=== PATIENT | male | born 1965 | race Caucasian/White ===

== ENCOUNTER 2016-09-27 16:10 | Emergency (ER) | payer MEDICAID ==
[~2016-09-27] VITALS: Ht 188 cm; Wt 118.0 kg
[2016-09-27 16:12] VITALS: BP 120/76; PULSE 68; RESP 20; TEMP 98.1; O2SAT 94
--- NOTE | 2016-09-27 16:53 | PD ---
HPI Chief Complaint: Lump, Cyst, Hernia Time Seen by Provider: 16:53 Travel History International Travel<30 days: No Contact w/Intl Traveler<30days: No Traveled to known affect area: No History of Present Illness HPI 51-year-old male with no significant medical history presents to the emergency department for evaluation of an abscess posterior to the scrotum worsening over last 4 days. Patient was at his primary care provider today who advised to come to the emergency department for possible surgical evaluation. Patient has had no fever or chills. States it is very painful. Rates it a 10 out of 10. No nausea or vomiting. No abdominal pain. Patient is unable to sit on his buttocks due to the pain. Bowel movements elicit pain. No blood in stool. No difficulty urinating. No other symptoms to report. PFSH Past Medical History Cardiac Catheterization: Yes Social History Alcohol Use: No Tobacco Use: No Substance Use: No Allergies-Medications (Allergen,Severity, Reaction): Coded Allergies: No Known Allergies (Unverified , 09/27/16) Reported Meds & Prescriptions Reported Meds & Active Scripts Active No Active Prescriptions or Reported Medications Review of Systems Except as stated in HPI: all other systems reviewed are Neg Physical Exam Narrative GENERAL: Well-nourished male patient, ambulatory very carefully and in no acute distress SKIN: Warm and dry. HEAD: Atraumatic. Normocephalic. EYES: Pupils equal and round. No scleral icterus. No injection or drainage. ENT: No nasal bleeding or discharge. Mucous membranes pink and moist. NECK: Trachea midline. No JVD. CARDIOVASCULAR: Regular rate and rhythm. No murmur appreciated. RESPIRATORY: No accessory muscle use. Clear to auscultation. Breath sounds equal bilaterally. GASTROINTESTINAL: Abdomen soft, non-tender, nondistended. Hepatic and splenic margins not palpable. RECTAL EXAM: Unable to do a complete rectal exam however there is a large area of edema in the parent and posterior to the scrotum and anterior to the anus. It appears fluctuant but is very very tender for the patient to any palpation. MUSCULOSKELETAL: No obvious deformities. No clubbing. No cyanosis. No edema. NEUROLOGICAL: Awake and alert. No obvious cranial nerve deficits. Motor grossly within normal limits. Normal speech. PSYCHIATRIC: Appropriate mood and affect; insight and judgment normal. Data Data Last Documented VS Vital Signs Date Time Temp Pulse Resp B/P Pulse Ox O2 Delivery O2 Flow Rate FiO2 09/27/16 16:12 98.1 68 20 120/76 94 Room Air Orders Complete Blood Count With Diff (09/27/16 17:07) Basic Metabolic Panel (Bmp) (09/27/16 17:07) Coag Profile (09/27/16 17:07) Ondansetron Inj (Zofran Inj) (09/27/16 18:00) Ct Abd/Pel W Iv Contrast(Rout) (09/27/16 ) Iv Access Insert/Monitor (09/27/16 18:05) Morphine Inj (Morphine Inj) (09/27/16 18:30) Iohexol 350 Inj (Omnipaque 350 Inj) (09/27/16 19:14) Labs Laboratory Tests Test 09/27/16 17:30 White Blood Count 10.5 TH/MM3 Red Blood Count 4.97 MIL/MM3 Hemoglobin 15.7 GM/DL Hematocrit 44.7 % Mean Corpuscular Volume 90.1 FL Mean Corpuscular Hemoglobin 31.7 PG Mean Corpuscular Hemoglobin 35.1 % Concent Red Cell Distribution Width 13.6 % Platelet Count 148 TH/MM3 Mean Platelet Volume 9.6 FL Neutrophils (%) (Auto) 68.6 % Lymphocytes (%) (Auto) 17.1 % Monocytes (%) (Auto) 10.5 % Eosinophils (%) (Auto) 3.1 % Basophils (%) (Auto) 0.7 % Neutrophils # (Auto) 7.2 TH/MM3 Lymphocytes # (Auto) 1.8 TH/MM3 Monocytes # (Auto) 1.1 TH/MM3 Eosinophils # (Auto) 0.3 TH/MM3 Basophils # (Auto) 0.1 TH/MM3 CBC Comment DIFF FINAL Differential Comment Prothrombin Time 10.3 SEC Prothromb Time International 0.9 RATIO Ratio Activated Partial 33.0 SEC Thromboplast Time Sodium Level 142 MEQ/L Potassium Level 4.2 MEQ/L Chloride Level 107 MEQ/L Carbon Dioxide Level 28.6 MEQ/L Anion Gap 6 MEQ/L Blood Urea Nitrogen 13 MG/DL Creatinine 0.97 MG/DL Estimat Glomerular Filtration 82 ML/MIN Rate Random Glucose 90 MG/DL Calcium Level 8.4 MG/DL MDM Medical Decision Making Medical Screen Exam Complete: Yes Emergency Medical Condition: Yes Medical Record Reviewed: Yes Differential Diagnosis Perineal abscess versus perirectal abscess versus prostatitis versus erysipelas versus folliculitis versus cellulitis Narrative Course 51-year-old male presents to emergency department for evaluation. Workup was initiated in triage. Once a medical bed becomes available, patient will be transferred and care assumed by that provider. Patient is unable to sit so he will stay in the bed here in triage. IV access has been obtained and CT imaging is ordered. Scripts No Active Prescriptions or Reported Meds Condition: Stable Chela Collins Sep 27, 2016 16:53
[2016-09-27 17:38] LABS: AUTOMATED NEUTROPHIL # 7.2 TH/MM3 (1.8-7.7); BASOPHIL # 0.1 TH/MM3 (0-0.2); BASOPHIL % 0.7 % (0.0-2.0); EOSINOPHIL # 0.3 TH/MM3 (0-0.4); EOSINOPHIL % 3.1 % (0.0-4.0); HEMATOCRIT 44.7 % (39.0-51.0); HEMO FLAGS DIFF FINAL; LYMPH % 17.1 % (9.0-44.0); LYMPHOCYTE # 1.8 TH/MM3 (1.0-4.8); MEAN CELL VOLUME 90.1 FL (80.0-100.0); MEAN CORPUSCULAR HEMOGLOBIN 31.7 PG (27.0-34.0); MEAN CORPUSCULAR HGB CONC 35.1 % (32.0-36.0); MONO % 10.5 % (0.0-8.0); NEUT % 68.6 % (16.0-70.0); PLATELET COUNT 148 TH/MM3 (150-450); RED BLOOD COUNT 4.97 MIL/MM3 (4.50-5.90); RED CELL DISTRIBUTION WIDTH 13.6 % (11.6-17.2); WHITE BLOOD COUNT 10.5 TH/MM3 (4.0-11.0)
[2016-09-27 17:47] LABS: INTERNATIONAL NORMALIZED RATIO 0.9 RATIO; PROTHROMBIN TIME - PATIENT 10.3 SEC (9.8-11.6)
[2016-09-27 17:51] LABS: BICARBONATE 28.6 MEQ/L (21.0-32.0); POTASSIUM 4.2 MEQ/L (3.5-5.1)
[2016-09-27] MEDS ORDERED: ONDANSETRON HCL 4 MG/2 ML VIAL IV PUSH ONE (18:00)
[2016-09-27] MEDS ORDERED: MORPHINE SULFATE 4 MG/ML INJ IV PUSH ONE (18:30)
[2016-09-27] MEDS ORDERED: IOHEXOL 350 MG/ML 10 ML VIAL (for RAD DIAG) IV ONE (19:14)
--- NOTE | 2016-09-27 19:52 | RADRPT ---
EXAM DATE/TIME: 09/27/2016 19:10 [facility] COMPARISON: No previous studies available for comparison. INDICATIONS : Patient complains of rectal pain; possible perirectal abscess. IV CONTRAST: 96 cc Omnipaque 350 (iohexol) IV ORAL CONTRAST: No oral contrast ingested. RADIATION DOSE: 21.08 CTDIvol (mGy) MEDICAL HISTORY : Cardiovascular disease. SURGICAL HISTORY : Colon resection. ENCOUNTER: Initial ACUITY: 1 day PAIN SCALE: 4/10 LOCATION: abdomen/pelvis TECHNIQUE: Volumetric scanning of the abdomen and pelvis was performed. Using automated exposure control and ad justment of the mA and/or kV according to patient size, radiation dose was kept as low as reasonably achievable to obtain optimal diagnostic quality images. FINDINGS: LOWER LUNGS: The visualized lower lungs are clear. LIVER: Homogeneous density without lesion. There is no dilation of the biliary tree. No calcified gallston es. SPLEEN: Normal size without lesion. PANCREAS: Within normal limits. KIDNEYS: Normal in size and shape. There is no mass, stone or hydronephrosis. ADRENAL GLANDS: Within normal limits. VASCULAR: There is no aortic aneurysm. BOWEL/MESENTERY: The stomach, small bowel, and colon demonstrate no acute abnormality. There is no free intraperitone al air or fluid. ABDOMINAL WALL: Within normal limits. RETROPERITONEUM: There is no lymphadenopathy. BLADDER: No wall thickening or mass. REPRODUCTIVE: Within normal limits. INGUINAL: There is no lymphadenopathy or hernia. MUSCULOSKELETAL: Within normal limits for patient age. Posterior to the base of the scrotum in the perineum there is a left-sided ovoid fluid collection erin suring 3.6 x 1.4 cm in size. The collection is anterior and inferior to the anus. The anus and rectum are unremarkable. CONCLUSION: Subcutaneous fluid collection in the left side of the perineum at the base of the scrotum characteris tics of a small subjacent abscess. No other significant abnormalities. Pasha Slaughter MD on September 27, 2016 at 19:46 Board Certified Radiologist. This report was verified electronically.
[2016-09-27] MEDS ORDERED: LIDOCAINE HCL 2% 20 ML VIAL INFIL ONE (20:45)
[2016-09-27] MEDS ORDERED: HYDROmorphone HCL PF 1 MG/ML VIAL IV PUSH ONE (20:45)
[2016-09-27] MEDS ORDERED: LIDOCAINE HCL 2% 50 ML VIAL ONE (20:50)
[2016-09-27] MEDS ORDERED: ACETAMINOPHEN/HYDROcodone 325 MG/5 MG TAB PO ONE (21:30)
[2016-09-27] MEDS ORDERED: HYDR-3533 PO (21:38)
[2016-09-27] MEDS ORDERED: BACT800T5 PO (21:38)
[2016-09-27] MEDS ORDERED: CEPH-460 PO (21:38)
--- NOTE | 2016-09-27 21:38 | PD ---
Physical Exam Narrative Patient is a 51-year-old male comes in with an abscess in his perineum. Patient was seen in triage where workup was initiated. He had labs drawn and a CT of his pelvis performed from triage. Patient was sent here by his primary doctor for incision and drainage. He says he has had the abscess for the past 4 days, and it seems to be getting bigger and more painful. He denies any fever or chills. Exam shows a 3 cm fluctuant mass in the perineum on the left side of face of the testicles. It does not seem to be testicular involvement. Data Data Last Documented VS Vital Signs Date Time Temp Pulse Resp B/P Pulse Ox O2 Delivery O2 Flow Rate FiO2 09/27/16 16:12 98.1 68 20 120/76 94 Room Air Orders Complete Blood Count With Diff (09/27/16 17:07) Basic Metabolic Panel (Bmp) (09/27/16 17:07) Coag Profile (09/27/16 17:07) Ondansetron Inj (Zofran Inj) (09/27/16 18:00) Ct Abd/Pel W Iv Contrast(Rout) (09/27/16 ) Iv Access Insert/Monitor (09/27/16 18:05) Morphine Inj (Morphine Inj) (09/27/16 18:30) Iohexol 350 Inj (Omnipaque 350 Inj) (09/27/16 19:14) Hydromorphone Pf Inj (Dilaudid Pf Inj) (09/27/16 20:45) Lidocaine 2% Inj (Xylocaine 2% Inj) (09/27/16 20:45) Lidocaine 2% Inj (Xylocaine 2% Inj) (09/27/16 20:50) Acetamin-Hydrocod 325-5 Mg ([place] 5-325 (09/27/16 21:30) Wound Culture And Gram Stain (09/27/16 21:24) Labs Laboratory Tests Test 09/27/16 17:30 White Blood Count 10.5 TH/MM3 Red Blood Count 4.97 MIL/MM3 Hemoglobin 15.7 GM/DL Hematocrit 44.7 % Mean Corpuscular Volume 90.1 FL Mean Corpuscular Hemoglobin 31.7 PG Mean Corpuscular Hemoglobin 35.1 % Concent Red Cell Distribution Width 13.6 % Platelet Count 148 TH/MM3 Mean Platelet Volume 9.6 FL Neutrophils (%) (Auto) 68.6 % Lymphocytes (%) (Auto) 17.1 % Monocytes (%) (Auto) 10.5 % Eosinophils (%) (Auto) 3.1 % Basophils (%) (Auto) 0.7 % Neutrophils # (Auto) 7.2 TH/MM3 Lymphocytes # (Auto) 1.8 TH/MM3 Monocytes # (Auto) 1.1 TH/MM3 Eosinophils # (Auto) 0.3 TH/MM3 Basophils # (Auto) 0.1 TH/MM3 CBC Comment DIFF FINAL Differential Comment Prothrombin Time 10.3 SEC Prothromb Time International 0.9 RATIO Ratio Activated Partial 33.0 SEC Thromboplast Time Sodium Level 142 MEQ/L Potassium Level 4.2 MEQ/L Chloride Level 107 MEQ/L Carbon Dioxide Level 28.6 MEQ/L Anion Gap 6 MEQ/L Blood Urea Nitrogen 13 MG/DL Creatinine 0.97 MG/DL Estimat Glomerular Filtration 82 ML/MIN Rate Random Glucose 90 MG/DL Calcium Level 8.4 MG/DL MDM Supervised Visit with DAMASO: No Narrative Course Patient is a 51-year-old male comes in with an abscess in his groin. CT performed shows an abscess at the base of the scrotum. Labs showed no acute abnormalities. Abscess was incised and drained at bedside. It was bandaged. He is given pain medicine. Will be discharged with prescriptions for Keflex and Bactrim as well as pain medicine. Advised follow-up with his doctors. Advised to return to the ED as needed for any worsening symptoms. Procedures Procedure Narrative INCISION AND DRAINAGE OF ABSCESS: The area was prepped and was sterilely draped. A subcutaneous wheal of 2 % Xylocaine with a total number 4 mL was used to anesthetize the area properly. A number 11 scalpel was used to make a 1 -cm incision across the area of the abscess. The abscess was drained, complex loculations were broken down, and irrigated with normal saline. Cultures were obtained. Sterile dressing applied. Patient advised to have packing removed in two days. Diagnosis Primary Impression: Abscess Patient Instructions: Abscess (ED), General Instructions Additional Instruction: Follow up with your doctor. Return to the ED as needed for any worsening symptoms. Keep the area clean and dry. Make sure to take all of your antibiotics. Scripts Hydrocodone-Acetaminophen (Lortab)5-325 Mg Tab1 Tab PO Q6H PRN (PAIN) #10 TAB Ref 0 Prov:Мария Caballero MD 09/27/16 Sulfamethoxazole-Trimethoprim (Bactrim DS)800-160 Mg Tab1 Tab PO BID 7 Days Ref 0 Prov:Мария Caballero MD 09/27/16 Cephalexin (Keflex)500 Mg Pln444 Mg PO Q6H 7 Days Ref 0 Prov:Мария Caballero MD 09/27/16 Disposition: 01 DISCHARGE HOME Condition: Stable Мария Caballero MD Sep 27, 2016 21:38
== END 2016-09-27 22:16 | disposition home or self-care (01) ==
LOC: NETRI 16:10 → NEPC 22:16
DX: L02.215 Cutaneous abscess of perineum (principal)
CPT/HCPCS: 46050; 74177; 80048; 85025; 85610; 85730; 86403; 87070; 96374; 96375; 99283; J1170; J2270; J2405; Q9967; 87205

== ENCOUNTER 2016-11-11 11:58 | Emergency (ER) | payer MEDICAID ==
[~2016-11-11] VITALS: Ht 190.5 cm; Wt 118.0 kg
[~2016-11-11 11:58] MED LIST: BACT800T5 PO; CEPH-460 PO; HYDR-3533 PO
[2016-11-11 12:00] VITALS: BP 136/74; PULSE 78; RESP 20; TEMP 97.8; O2SAT 96
--- NOTE | 2016-11-11 12:54 | PD ---
HPI Chief Complaint: Injury Time Seen by Provider: 12:54 Travel History International Travel<30 days: No Contact w/Intl Traveler<30days: No Traveled to known affect area: No History of Present Illness HPI 51-year-old male presents to emergency Department with complaint of left heel pain since Friday night after jumping into the deep end of a pole and it was more shallow than he thought. Denies any pain or hip pain. Denies paresthesias , loss of sensation, decreased range of motion, decreased strength to the affected extremity. Pain is worse on pressure to the heel. Pain is decreased while at rest. Has tried elevating and icing with no relief of symptoms. Has not taken any medications to alleviate his symptoms. No known allergies. No other modifying factors or associated signs and symptoms. [facility] Past Medical History Cardiac Catheterization: Yes Past Surgical History Abdominal Surgery: Yes (bowerl resection ) Social History Alcohol Use: Yes (occa. ) Tobacco Use: Yes (1 ppd ) Substance Use: No Allergies-Medications (Allergen,Severity, Reaction): Coded Allergies: No Known Allergies (Unverified , 11/11/16) Reported Meds & Prescriptions Reported Meds & Active Scripts Active Review of Systems Except as stated in HPI: all other systems reviewed are Neg Physical Exam Narrative GENERAL: Well-nourished, well-developed male patient, in no acute distress SKIN: Warm and dry. HEAD: Atraumatic. Normocephalic. EYES: Pupils equal and round. No scleral icterus. No injection or drainage. ENT: Mucosa pink and moist. Airway patent. NECK: Trachea midline. CARDIOVASCULAR: Regular rate. RESPIRATORY: No accessory muscle use. GASTROINTESTINAL: Round. MUSCULOSKELETAL: Left ankle is with mild edema and point tenderness to the lateral and medial aspects; without obvious deformity; without erythema, ecchymosis. Reproducible tenderness on palpation to the bottom of the left heel ; the areas without erythema, edema, ecchymosis; no obvious deformities. Left lower extremity supple and non-tense with 2+ pedal pulses and sensory intact and without erythema or edema. No reproducible tenderness on palpation of the head of the fibula. No obvious deformities. No clubbing. No cyanosis. No edema. NEUROLOGICAL: Awake and alert. Oriented 3. No obvious cranial nerve deficits. Motor grossly within normal limits. Normal speech. PSYCHIATRIC: Appropriate mood and affect; insight and judgment normal. Data Data Last Documented VS Vital Signs Date Time Temp Pulse Resp B/P Pulse Ox O2 Delivery O2 Flow Rate FiO2 11/11/16 12:00 97.8 78 20 136/74 96 Room Air Orders Ankle, Complete ([id number]) (11/11/16 12:44) Foot, Heel Only ([id number]) (11/11/16 ) Crutches (11/11/16 13:54) MDM Medical Decision Making Medical Screen Exam Complete: Yes Emergency Medical Condition: Yes Medical Record Reviewed: Yes Differential Diagnosis Heel fracture, ankle fracture, ankle sprain, heel contusion Narrative Course 51-year-old male with left heel and ankle injury. Left heel and ankle x-rays ordered. I offered the patient a nonnarcotic for pain and he declined at this time. 1350: Left ankle and left heel x-ray are unremarkable with no acute findings; there is a Calcaneal spur is present at the attachment site of the plantar aponeurosis and Achilles tendon. Ankle stirrup splint and Crutches provided for support. Instructed patient to follow up with podiatry. Patient verbalizes understanding and agreement with treatment plan. Patient is medically cleared and stable for discharge. Discussed reasons to return to the emergency department. Instructed patient to follow up with primary care provider. Patient agrees with treatment plan. The patients vital signs are stable and the patient is stable for outpatient follow-up and treatment. Patient discharged home, stable and in no acute distress. Diagnosis Primary Impression: Contusion of left heel Qualified Code: S90.32XA - Contusion of left heel, initial encounter Additional Impression: Calcaneal spur of left foot Referrals: [facility] Primary Care Physician Patient Instructions: Crutch Instructions (ED), General Instructions, Heel Spur (ED) Departure Forms: Tests/Procedures, Work Release Enter return to work date: Nov 13, 2016 Additional Instructions: Tylenol or ibuprofen as instructed and as needed for pain and inflammation Rest, ice, compress, and elevate extremity to decrease pain and inflammation Crutches for support Avoid aggravating activity; increase activity as tolerated Follow-up with primary care provider Return to the emergency department immediately with worsening symptoms Med/Other Pt SpecificInfo: No Meds Exist/No RX given Disposition: 01 DISCHARGE HOME Condition: Stable Liliana John Nov 11, 2016 12:54
--- NOTE | 2016-11-11 13:16 | RADRPT ---
EXAM DATE/TIME: 11/11/2016 12:55 [facility] COMPARISON: No previous studies available for comparison. INDICATIONS : Left heel pain after jumping in a pool on Friday. MEDICAL HISTORY : Smoker. SURGICAL HISTORY : None. ENCOUNTER: Initial ACUITY: 3 days PAIN SCORE: 10/10 LOCATION: Left heel. FINDINGS: No definite fractures, or dislocations are identified. No definite lytic or sclerotic lesion is seen . The joint spaces are well maintained. Calcaneal spur is present at the attachment site of the plan tar aponeurosis and Achilles tendon. IMPRESSION: Chronic changes and no definite fracture for technique. Renaldo Alarcon MD on November 11, 2016 at 13:13 Board Certified Radiologist. This report was verified electronically.
--- NOTE | 2016-11-11 13:26 | RADRPT ---
EXAM DATE/TIME: 11/11/2016 12:59 [facility] COMPARISON: No previous studies available for comparison. INDICATIONS : Left heel pain after jumping in a pool on Friday. MEDICAL HISTORY : Smoker. SURGICAL HISTORY : None. ENCOUNTER: Initial ACUITY: 3 days PAIN SCORE: 10/10 LOCATION: Left heel. FINDINGS: No definite fractures, or dislocations are identified. No definite lytic or sclerotic lesion is seen . Calcaneal spur is present at the attachment site of the plantar aponeurosis and Achilles tendon. IMPRESSION: No definite fracture is identified for technique. KMynor Alarcon MD on November 11, 2016 at 13:23 Board Certified Radiologist. This report was verified electronically.
== END 2016-11-11 14:08 | disposition home or self-care (01) ==
LOC: NEPK 11:58
DX: S90.32XA Contusion of left foot, initial encounter (principal); W16.522A Jumping or diving into swimming pool striking bottom causing other injury, initial encounter; M77.32 Calcaneal spur, left foot; Y93.11 Activity, swimming; F17.210 Nicotine dependence, cigarettes, uncomplicated
CPT/HCPCS: 73610; 73650; 99283; E0113; L1906